=== PATIENT | female | born 1940 | race Caucasian/White ===

== ENCOUNTER 2016-12-15 10:12 | Emergency (ER) | payer MEDICARE ==
[2016-12-15] MEDS ORDERED: HYDROmorphone 0.5 MG/0.5 ML Syringe IVPUSH ONE (10:22)
[2016-12-15] MEDS ORDERED: Sodium Chloride 0.9% 10 ML Syringe FLUSH PRN (10:22)
[2016-12-15] MEDS ORDERED: ceFAZolin 1,000 MG VIAL IVPUSH ONE (11:19)
[2016-12-15] MEDS ORDERED: Lidocaine 1% 50 ML MDV INJECT ONE (11:20)
[2016-12-15] MEDS ORDERED: ceFAZolin 1 GM in Premix Bag 1 BAG IV ONE (11:42)
--- NOTE | 2016-12-15 12:12 | EDM.PDOC ---
ED HPI GENERAL MEDICAL PROBLEM - General Chief Complaint: Upper Extremity Injury/Pain Stated Complaint: PINKY FINGER INJURY Time Seen by Provider: 12/15/16 10:19 Source of Information: Reports: Patient History Limitations: Reports: No Limitations - History of Present Illness INITIAL COMMENTS - FREE TEXT/NARRATIVE: The patient was up at the clinic to see Dr Hermosillo and she went to the bathroom. When she was coming out of the bathroom, she had her hand on the door frame and the door shut and crushed her left, 5th distal finger. She is right handed. She denies any other injuries. She is up to date with her tetanus. Onset: Sudden Duration: Minutes: Location: Reports: Upper Extremity, Left (5th digit) Quality: Reports: Sharp Severity: Severe Improves with: Reports: None Worsens with: Reports: Movement Context: Reports: Trauma (Finger got crushed in the door) Associated Symptoms: Reports: No Other Symptoms Left Upper 5-Little finger Pain Score (Numeric/FACES): 10 - Related Data Allergies Allergy/AdvReac Type Severity Reaction Status Date / Time morphine AdvReac Other Verified 12/15/16 10:42 Home Meds: Home Meds Cephalexin [Keflex] 500 mg PO Q6HR #28 cap 12/15/16 [Rx] Hydrocodone/Acetaminophen [Hydrocodon-Acetaminophen 5-325] 1 - 2 each PO Q6HR PRN #20 tablet 12/15/16 [Rx] Past Medical History Genitourinary History: Reports: Renal Calculus 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: Neurological History: Reports: Alzheimers Disease Hematologic History: Reports: Anemia - Past Surgical History Musculoskeletal Surgical History: Reports: Hip Replacement, Knee Replacement, Other (See Below) Other Musculoskeletal Surgeries/Procedures:: Toes amputated Social & Family History - Family History Family Medical History: Noncontributory - Tobacco Use Smoking Status *Q: Former Smoker Used Tobacco, but Quit: Yes Month Tobacco Last Used: Nov 1996 - Recreational Drug Use Recreational Drug Use: No Review of Systems - Review of Systems Review Of Systems: See Below Constitutional: Reports: No Symptoms Eyes: Reports: No Symptoms Ears: Reports: No Symptoms Nose: Reports: No Symptoms Mouth/Throat: Reports: No Symptoms Respiratory: Reports: No Symptoms Cardiovascular: Reports: No Symptoms GI/Abdominal: Reports: No Symptoms Genitourinary: Reports: No Symptoms Musculoskeletal: Reports: Other (Left 5th distal finger fracture) ED EXAM, GENERAL - Physical Exam Exam: See Below Exam Limited By: No Limitations General Appearance: Alert, No Apparent Distress Ears: Normal External Exam Nose: Normal Inspection Head: Atraumatic, Normocephalic Neck: Normal Inspection Respiratory/Chest: No Respiratory Distress Extremities: Other (Left, 5th, distal finger has a partial amputation to the dorsal aspect of the digit. There is a 2.5cm laceration to the base of the nail that goes around the finger. There is no laceration to the volar aspect and the patient has good capillary refill and sensation to the finger tip.) ED TRAUMA EXTREMITY PROCEDURES - Laceration/Wound Repair Left Finger Lac/Wound Length In cm: 2.5 Appearance: Subcutaneous, Irregular Distal NVT: Neuro & Vascular Intact Anesthetic Type: Digital Local Anesthesia - Lidocaine (Xylocaine): 1% Plain Skin Prep: Saline Exploration/Debridement/Repair: Wound Explored, In a Bloodless Field, Explored to Base Closed With: Sutures Suture Size: 4-0 # of Sutures: 5 Suture Type: Nylon, Interrupted, Simple Tetanus Status Addressed: Yes Complications: No Course - Vital Signs Last Recorded V/S: Last Vital Signs Temp 98.7 F 12/15/16 10:36 Pulse 81 12/15/16 10:36 Resp 18 12/15/16 10:36 BP Pulse Ox 85 L 12/15/16 11:36 - Orders/Labs/Meds Orders: Active Orders 24 hr Category Date Time Status Peripheral IV Care [RC] . DIRECTED Care 12/15/16 10:22 Active Fingers Fifth Digit Lt F4 [CR] Stat Exams 12/15/16 10:23 Taken Sodium Chloride 0.9% [Saline Flush] Med 12/15/16 10:22 Active 10 ml FLUSH ASDIRECTED PRN Peripheral IV Insertion Adult [OM.PC] Routine Oth 12/15/16 10:22 Ordered Medication Orders Sodium Chloride (Saline Flush) 10 ml FLUSH ASDIRECTED PRN PRN Reason: Keep Vein Open Last Admin: 12/15/16 10:36 Dose: 10 ml Meds: Medications Generic Name Dose Route Start Last Admin Trade Name Freq PRN Reason Stop Dose Admin Sodium Chloride 10 ml 12/15/16 10:22 12/15/16 10:36 Saline Flush FLUSH 10 ml ASDIRECTED PRN Administration Keep Vein Open Discontinued Medications Generic Name Dose Route Start Last Admin Trade Name Leigh PRN Reason Stop Dose Admin Hydromorphone HCl 0.5 mg 12/15/16 10:22 12/15/16 10:32 Dilaudid IVPUSH 12/15/16 10:23 0.5 mg ONETIME ONE Administration Cefazolin Sodium/Dextrose Confirm 12/15/16 11:43 12/15/16 11:45 Ancef Administered 12/15/16 11:44 Not Given Dose 50 mls @ as directed .ROUTE .STK-MED ONE Cefazolin Sodium/Dextrose 1 gm 50 mls @ 100 mls/hr 12/15/16 11:42 12/15/16 11 :47 / Premix IV 12/15/16 12:11 100 mls/hr ONETIME ONE Administration Lidocaine HCl 50 ml 12/15/16 11:20 12/15/16 11:49 Xylocaine 1% INJECT 12/15/16 11:21 50 ml ONETIME ONE Administration - Re-Assessments/Exams Free Text/Narrative Re-Assessment/Exam: 12/15/16 12:12 I ordered an IV saline lock, dilaudid 0.5mg IV, ancef 1 gram and an x-ray. The x-ray shows a distal phalynx fracture of the 5th finger. She has good sensation and capillary refill distally to the tip of the finger. I was able to suture the tip back on. I will get her on keflex and something for pain. I will have her follow up with Dr Smith. Departure - Departure Time of Disposition: 12:15 Disposition: Home, Self-Care 01 Condition: Good Clinical Impression: Crushing injury of finger of left hand Open fracture of finger of left hand Qualifiers: Encounter type: initial encounter Finger: little finger Phalanx: distal Fracture alignment: displaced Qualified Code(s): S62.637B - Displaced fracture of distal phalanx of left little finger, initial encounter for open fracture - Discharge Information Prescriptions: Cephalexin [Keflex] 500 mg PO Q6HR #28 cap Hydrocodone/Acetaminophen [Hydrocodon-Acetaminophen 5-325] 1 - 2 each PO Q6HR PRN #20 tablet PRN Reason: Pain Referrals: Summer Hermosillo [Primary Care Provider] - Zack Smith MD [Physician] - 1 Week Forms: ED Department Discharge Additional Instructions: Take the keflex every 6 hours for 1 week. Take the hydrocodone as needed for pain. Soak your finger in warm soapy water 2 times per day and apply antibiotic ointment after for 1 week. Follow up with Dr Smith on MondayDecember 20 at 9:30. Please come early to register. Please return if you have more problems. - My Orders Last 24 Hours: My Active Orders 12/15/16 10:22 Peripheral IV Care [RC] . DIRECTED Sodium Chloride 0.9% [Saline Flush] 10 ml FLUSH ASDIRECTED PRN Peripheral IV Insertion Adult [OM.PC] Routine 12/15/16 10:23 Fingers Fifth Digit Lt F4 [CR] Stat - Assessment/Plan Last 24 Hours: My Active Orders 12/15/16 10:22 Peripheral IV Care [RC] . DIRECTED Sodium Chloride 0.9% [Saline Flush] 10 ml FLUSH ASDIRECTED PRN Peripheral IV Insertion Adult [OM.PC] Routine 12/15/16 10:23 Fingers Fifth Digit Lt F4 [CR] Stat
--- NOTE | 2016-12-16 16:55 | CR ---
Left fifth finger: Four views of the left fifth finger were obtained. Soft tissue injury is identified within the distal fifth finger. Displaced fracture is identified within the distal aspect of the fifth finger. Small calcification is noted off the DIP joint which appears to be old. Joint space narrowing is noted within the DIP joint. No additional bony abnormality is seen. Impression: 1. Soft tissue injury and fracture within the distal aspect of the distal phalanx of the left fifth finger. 2. Other incidental findings. Diagnostic code #3
== END 2016-12-15 12:43 | disposition home or self-care (01) ==
LOC: JD.ED 10:12
DX: S67.197A Crushing injury of left little finger, initial encounter (principal); S62.637B Displaced fracture of distal phalanx of left little finger, initial encounter for open fracture; Z88.5 Allergy status to narcotic agent; Z87.891 Personal history of nicotine dependence; W23.1XXA Caught, crushed, jammed, or pinched between stationary objects, initial encounter
CPT/HCPCS: 12001; 73140; 96365; 96375; 99284; J0690; J1170; J7050; 64450

== ENCOUNTER 2019-07-01 12:36 | Inpatient (IN) | payer MEDICARE, MEDICAID ==
--- NOTE | 2019-07-01 12:51 | EDM.PDOC ---
ED HPI GENERAL MEDICAL PROBLEM - General Chief Complaint: Back Pain or Injury Stated Complaint: [facility] Time Seen by Provider: 07/01/19 12:46 Source of Information: Reports: Patient, EMS History Limitations: Reports: Altered Mental Status, Other - History of Present Illness INITIAL COMMENTS - FREE TEXT/NARRATIVE: Fall landing on her back. Onset: Today Duration: Hour(s):, Constant Location: Reports: Back Quality: Reports: Ache Severity: Moderate Improves with: Reports: None Worsens with: Reports: None Context: Reports: Activity Associated Symptoms: Reports: Confusion, Loss of Appetite, Weakness Treatments MOTHER'S HELPER: Reports: See EMS Report (Patient brought in by ambulance after a fall at home. She must of fallen and different room from where she lives with her daughter. Was found on her back, had a scrape on her right lower back and flank area. No obvious loss of consciousness, patient has underlying Alzheimer's dementia. She currently is not complaining of any specific headaches, neck pain, chest pain or breathing problems. Her pulse oximetry however was low at mid 80% on room air range, blood pressure was low. Patient seems easily confused but does know her name and birthdate. Currently denies any headache, vision problems, swallowing problems, no coughing or chest pain, denies abdominal pain. 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 ED EXAM,LOWER BACK PAIN/INJURY - Physical Exam Exam: See Below Exam Limited By: No Limitations General Appearance: Alert, WD/WN, No Apparent Distress Eye Exam: Bilateral Eye: PERRL Ears: Normal TMs Nose: Normal Inspection Throat/Mouth: Other (Dry mucous membranes) Head: Atraumatic, Normocephalic Neck: Normal Inspection Respiratory/Chest: No Respiratory Distress, Lungs Clear, Normal Breath Sounds. No: Rhonchi, Wheezing Cardiovascular: Normal Peripheral Pulses, Regular Rate, Rhythm, No Edema, No JVD GI/Abdominal: Normal Bowel Sounds, Soft, Non-Tender, No Mass Back Exam: Decreased Range of Motion, Paraspinal Tenderness, Vertebral Tenderness Extremities: Normal Inspection, Normal Range of Motion, No Pedal Edema, Slow Capillary Refill Neurological: Alert, No Motor/Sensory Deficits Psychiatric: Normal Affect, Normal Mood Skin Exam: Warm, Dry (Patient oriented to person and place, no signs of any head injury or trauma no santacruz signs noted, neck supple no neck tenderness on palpation, her tenderness is mostly in the lumbar spine and the right paraspinal area and there is a abrasion right lower back as well. No deep lacerations are noted. No bruising discoloration noted. Abdomen soft nontender pelvis is stable, hips knees and ankles are examined and are uninjured.) EKG INTERPRETATION EKG Date: 07/01/19 EKG Interpretation Comments: EKG shows sinus rhythm that I reviewed with a rate of 72, IN 162 QRS 83 QT corrected is 448, nonspecific T wave inversion in lead V2 and V3 no acute ischemic changes noted. Course - Vital Signs Last Recorded V/S: Last Vital Signs Temp 99.1 F 07/01/19 12:41 MDT Pulse 79 07/01/19 12:41 MDT Resp 20 07/01/19 12:41 MDT BP 113/98 H 07/01/19 12:41 MDT Pulse Ox 85 L 07/01/19 12:41 MDT - Orders/Labs/Meds Orders: Active Orders 24 hr Category Date Time Status Cardiac Monitoring [RC] . DIRECTED Care 07/01/19 13:52 Active EKG Documentation Completion [RC] STAT Care 07/01/19 13:52 Active Peripheral IV Care [RC] . DIRECTED Care 07/01/19 13:54 Active CTA Chest W WO Contrast [Ang Chest] [CT] Stat Exams 07/01/19 16:25 Ordered Sodium Chloride 0.9% [Saline Flush] Med 07/01/19 13:53 Active 10 ml FLUSH ASDIRECTED PRN Peripheral IV Insertion Adult [OM.PC] Stat Oth 07/01/19 13:52 Ordered Medication Orders Sodium Chloride (Saline Flush) 10 ml FLUSH ASDIRECTED PRN PRN Reason: Keep Vein Open Last Admin: 07/01/19 14:16 MDT Dose: 10 ml Labs: Laboratory Tests 07/01/19 07/01/19 07/01/19 Range/Units 14:17 MDT 14:17 MDT 14:17 MDT WBC 9.89 (3.98-10.04) K/mm3 RBC 5.53 H (3.98-5.22) M/mm3 Hgb 14.4 (11.2-15.7) gm/dl Hct 45.1 H (34.1-44.9) % MCV 81.6 (79.4-94.8) fl MCH 26.0 (25.6-32.2) pg MCHC 31.9 L (32.2-35.5) g/dl RDW Std Deviation 49.8 H (36.4-46.3) fL Plt Count 356 (182-369) K/mm3 MPV 9.8 (9.4-12.3) fl Neut % (Auto) 80.2 H (34.0-71.1) % Lymph % (Auto) 12.1 L (19.3-51.7) % Faulk % (Auto) 6.8 (4.7-12.5) % Eos % (Auto) 0.5 L (0.7-5.8) Baso % (Auto) 0.2 (0.1-1.2) % Neut # (Auto) 7.93 H (1.56-6.13) K/mm3 Lymph # (Auto) 1.20 (1.18-3.74) K/mm3 Faulk # (Auto) 0.67 H (0.24-0.36) K/mm3 Eos # (Auto) 0.05 (0.04-0.36) K/mm3 Baso # (Auto) 0.02 (0.01-0.08) K/mm3 Sodium 136 (136-145) mEq/L Potassium 4.0 (3.5-5.1) mEq/L Chloride 100 (98-107) mEq/L Carbon Dioxide 27 (21-32) mEq/L Anion Gap 13.0 (5-15) BUN 10 (7-18) mg/dL Creatinine 0.5 L (0.55-1.02) mg/dL Est Cr Clr Drug Dosing 81.37 mL/min Estimated GFR (MDRD) > 60 (>60) mL/min BUN/Creatinine Ratio 20.0 H (14-18) Glucose 104 (83-115) mg/dL Lactic Acid (0.4-2.0) mmol/L Calcium 8.4 L (8.5-10.1) mg/dL Total Bilirubin 0.7 (0.2-1.0) mg/dL AST 16 (15-37) U/L ALT 14 (14-59) U/L Alkaline Phosphatase 81 (46-116) U/L Troponin I < 0.017 (0.00-0.056) ng/mL C-Reactive Protein 3.6 H* (<1.0) mg/dL NT-Pro-B Natriuret Pep 602 H (0-450) pg/mL Total Protein 7.7 (6.4-8.2) g/dl Albumin 2.7 L (3.4-5.0) g/dl Globulin 5.0 gm/dL Albumin/Globulin Ratio 0.5 L (1-2) Urine Color (Yellow) Urine Appearance (Clear) Urine pH (5.0-8.0) Ur Specific [place] (1.005-1.030) Urine Protein (Negative) Urine Glucose (UA) (Negative) Urine Ketones (Negative) Urine Occult Blood (Negative) Urine Nitrite (Negative) Urine Bilirubin (Negative) Urine Urobilinogen (0.2-1.0) Ur Leukocyte Esterase (Negative) Urine RBC (0-5) /hpf Urine WBC (0-5) /hpf Ur Squamous Epith Cells (0-5) /hpf Urine Bacteria (FEW) /hpf Urine Mucus (FEW) /hpf 07/01/19 07/01/19 Range/Units 14:32 MDT 14:58 MDT WBC (3.98-10.04) K/mm3 RBC (3.98-5.22) M/mm3 Hgb (11.2-15.7) gm/dl Hct (34.1-44.9) % MCV (79.4-94.8) fl MCH (25.6-32.2) pg MCHC (32.2-35.5) g/dl RDW Std Deviation (36.4-46.3) fL Plt Count (182-369) K/mm3 MPV (9.4-12.3) fl Neut % (Auto) (34.0-71.1) % Lymph % (Auto) (19.3-51.7) % Faulk % (Auto) (4.7-12.5) % Eos % (Auto) (0.7-5.8) Baso % (Auto) (0.1-1.2) % Neut # (Auto) (1.56-6.13) K/mm3 Lymph # (Auto) (1.18-3.74) K/mm3 Faulk # (Auto) (0.24-0.36) K/mm3 Eos # (Auto) (0.04-0.36) K/mm3 Baso # (Auto) (0.01-0.08) K/mm3 Sodium (136-145) mEq/L Potassium (3.5-5.1) mEq/L Chloride (98-107) mEq/L Carbon Dioxide (21-32) mEq/L Anion Gap (5-15) BUN (7-18) mg/dL Creatinine (0.55-1.02) mg/dL Est Cr Clr Drug Dosing mL/min Estimated GFR (MDRD) (>60) mL/min BUN/Creatinine Ratio (14-18) Glucose (83-115) mg/dL Lactic Acid 1.9 (0.4-2.0) mmol/L Calcium (8.5-10.1) mg/dL Total Bilirubin (0.2-1.0) mg/dL AST (15-37) U/L ALT (14-59) U/L Alkaline Phosphatase (46-116) U/L Troponin I (0.00-0.056) ng/mL C-Reactive Protein (<1.0) mg/dL NT-Pro-B Natriuret Pep (0-450) pg/mL Total Protein (6.4-8.2) g/dl Albumin (3.4-5.0) g/dl Globulin gm/dL Albumin/Globulin Ratio (1-2) Urine Color Yellow (Yellow) Urine Appearance Clear (Clear) Urine pH 6.0 (5.0-8.0) Ur Specific [place] 1.025 (1.005-1.030) Urine Protein Negative (Negative) Urine Glucose (UA) Negative (Negative) Urine Ketones Negative (Negative) Urine Occult Blood Negative (Negative) Urine Nitrite Negative (Negative) Urine Bilirubin 1+ H (Negative) Urine Urobilinogen 1.0 (0.2-1.0) Ur Leukocyte Esterase Negative (Negative) Urine RBC 0-5 (0-5) /hpf Urine WBC 0-5 (0-5) /hpf Ur Squamous Epith Cells 5-10 H (0-5) /hpf Urine Bacteria Few (FEW) /hpf Urine Mucus Moderate H (FEW) /hpf Meds: Medications Generic Name Dose Route Start Last Admin Trade Name Freq PRN Reason Stop Dose Admin Sodium Chloride 10 ml 07/01/19 13:53 MDT 07/01/19 14:16 MDT Saline Flush FLUSH 10 ml ASDIRECTED PRN Administration Keep Vein Open Discontinued Medications Generic Name Dose Route Start Last Admin Trade Name Freq PRN Reason Stop Dose Admin Sodium Chloride 500 mls @ 500 mls/hr 07/01/19 13:53 MDT 07/01/19 14:16 MDT Normal Saline IV 07/01/19 14:52 MDT 500 mls/hr .BOLUS ONE Administration - Radiology Interpretation Free Text/Narrative:: Chest x-ray shows right elbow prosthetic heart size is normal mediastinum normal no acute findings on chest x-ray Lumbar spine x-rays show compression deformities at T11-T12 which appear more old there is also compression deformities at L2 and 3 to space narrowing, degenerative changes noted X-ray of the pelvis shows severe degenerative changes in the hip otherwise some osteopenia no acute fractures noted. - Re-Assessments/Exams Free Text/Narrative Re-Assessment/Exam: 07/01/19 15:44 Patient with a fall, reviewed prehospital report, reviewed history, patient hypotensive and hypoxic. Patient does appear to be dehydrated as well. Lactic acid 1.9 EKG is negative for any acute ischemia, no chest pain, no acute fractures on her lumbar spine x-ray, chest x-ray is negative for infiltrate white count is normal no fevers. Given IV fluid bolus, oxygen therapy. Consider hospitalization for overnight however will talk with the patient's family regarding disposition. 07/01/19 16:[address] Jung for hospital medicine and with her requirement for oxygen with no etiology send her for a CT chest PE study rule out PE or other etiology, her blood pressure stabilized after 500 cc fluid bolus. Do not feel that she has sepsis at present, her serum lactate was okay, urinalysis is negative, chest x-ray otherwise does not show infection. Seems very unlikely to be coronavirus infection. Spent 15 minutes talking to the daughter who is the power of caustic room attendant and she is a DO NOT RESUSCITATE. It sounds like she probably did trip over her walker today however with the hypoxia and blood pressure again we will keep her monitored overnight. Departure - Departure Time of Disposition: 16:30 Disposition: Admitted As Inpatient 68 Condition: Fair Clinical Impression: Hypoxia Hypotension Qualifiers: Hypotension type: hypotension due to hypovolemia Qualified Code(s): I95.89 - Other hypotension - Discharge Information Referrals: PCP,None [Primary Care Provider] - Forms: ED Department Discharge Sepsis Event Note - Evaluation Sepsis Screening Result: No Definite Risk - Focused Exam Vital Signs: Vital Signs Temp Pulse Resp BP Pulse Ox 07/01/19 12:41 MDT 99.1 F 79 20 113/98 H 85 L Date Exam was Performed: 07/01/19 Time Exam was Performed: 17:34 - My Orders Last 24 Hours: My Active Orders 07/01/19 13:52 Cardiac Monitoring [RC] . DIRECTED EKG Documentation Completion [RC] STAT Peripheral IV Insertion Adult [OM.PC] Stat 07/01/19 13:53 Sodium Chloride 0.9% [Saline Flush] 10 ml FLUSH ASDIRECTED PRN 07/01/19 13:54 Peripheral IV Care [RC] . DIRECTED 07/01/19 16:25 CTA Chest W WO Contrast [Ang Chest] [CT] Stat - Assessment/Plan Last 24 Hours: My Active Orders 07/01/19 13:52 Cardiac Monitoring [RC] . DIRECTED EKG Documentation Completion [RC] STAT Peripheral IV Insertion Adult [OM.PC] Stat 07/01/19 13:53 Sodium Chloride 0.9% [Saline Flush] 10 ml FLUSH ASDIRECTED PRN 07/01/19 13:54 Peripheral IV Care [RC] . DIRECTED 07/01/19 16:25 CTA Chest W WO Contrast [Ang Chest] [CT] Stat
--- NOTE | 2019-07-01 13:36 | CR ---
Pelvis: AP view of pelvis was obtained. Comparison: No previous pelvis exam is available. Left hip prosthesis is seen. Severe joint space narrowing is seen diffusely within the right hip. Right femoral head shows osteophytes. Osteopenia is noted. No acute fracture or other abnormality is appreciated. Impression: 1. Severe degenerative change within the right hip. 2. Osteopenia and other findings. 3. Nothing acute is seen. Diagnostic code #2 Study was dictated in MDT
--- NOTE | 2019-07-01 13:36 | CR ---
Lumbar spine: AP and lateral views lumbar spine were obtained. Comparison: No prior lumbar spine imaging. Vertebroplasty is noted within a compression deformity involving T12. Mild compression deformity of T11 is seen with osteophytes suggesting that this is old. Mild compression deformities are seen within L2 and L3 which are likely old. Diffuse disc space narrowing within the spine is seen. Scattered endplate osteophytes are noted. Minimal scoliosis is seen. Left hip prosthesis is noted. Sacroiliac joints are within normal as. Bony structures are osteopenic. Impression: 1. Compression deformities as noted above which are most likely old. 2. Degenerative change and mild scoliosis. 3. Nothing acute is definitely appreciated. Diagnostic code #2 Study was dictated in MDT
--- NOTE | 2019-07-01 13:36 | CR ---
Chest: AP view of the chest was obtained. Comparison: No prior chest imaging. Right elbow prosthesis is seen. Heart size is normal. Upper mediastinum is normal. Lungs show no acute parenchymal change. Impression: 1. Findings as described above. 2. Nothing acute is definitely appreciated. Diagnostic code #2 Study was dictated in MDT
[2019-07-01] MEDS ORDERED: Sodium Chloride 0.9% 500 ML IV ONE (13:53)
[2019-07-01] MEDS ORDERED: Sodium Chloride 0.9% 10 ML Syringe FLUSH PRN ×2 (13:53→16:37)
--- NOTE | 2019-07-01 14:24 | CT ---
Head CT Technique: Multiple axial sections through the brain were obtained. Intravenous contrast was not utilized. Comparison: No prior intracranial imaging is available. Findings: Ventricles along with basal cisterns and sulci the convexities are moderately prominent. Areas of diminished density are noted within the subcortical and periventricular white matter which is felt compatible with small vessel ischemic demyelination change. Slight mucosal thickening is seen within both mastoid sinuses. Visualized paranasal sinuses show nothing acute. No acute calvarial abnormality is appreciated. Impression: 1. Senescent change as described above. 2. Mastoid sinus findings most likely chronic. 3. Nothing acute is appreciated on noncontrast head CT exam. Diagnostic code #2 Study was dictated in MDT
[2019-07-01] MEDS ORDERED: Iopamidol 755 Mg/ML 100 ML Bottle IVPUSH ONE (16:37)
[2019-07-01] MEDS ORDERED: Sodium Chloride 0.9% 100 ML IV SCH (16:45)
--- NOTE | 2019-07-01 17:13 | CT ---
CT chest Technique: Multiple axial sections were obtained from above the lung apices inferiorly through the lung bases. Intravenous contrast was utilized. Study performed as a ureteral stone protocol. Findings: Pulmonary arteries are somewhat enlarged. No filling defects are seen to indicate pulmonary embolism. Coronary artery calcification is noted. Aorta shows atherosclerotic calcification. No aneurysm is seen. Lymph node is is noted within the right hilar region measuring 1.8 cm. No pericardial thickening is seen. Small hiatal hernia is noted. Diffuse emphysematous change noted with peripheral fibrosis. No acute pulmonary parenchymal density is seen. No focal nodule is seen. Compression deformity is seen within the lower thoracic spine which are likely old. Previous vertebroplasty is seen within one of the fractures. Degenerative change is noted throughout the spine. No acute osseous finding is seen. Impression: 1. No findings of pulmonary embolism. 2. Diffuse emphysematous change with peripheral fibrosis. 3. Lymph node within the right hilar region most likely on an inflammatory basis. 4. Nothing acute is otherwise seen. Diagnostic code #2 Study was dictated in MDT
[2019-07-01] MEDS: Acetaminophen 325 MG Tab PO PRN (20:24)
--- NOTE | 2019-07-01 20:32 | PCM.HP.2 ---
H&P History of Present Illness - General Date of Service: 07/01/19 Admit Problem/Dx: Admission Diagnosis/Problem Admission Diagnosis/Problem Fall History Limitations: Reports: Other (Alzheimer's dementia) - History of Present Illness Initial Comments - Free Text/Narative: 9-year-old patient with history of Alzheimer's dementia brought in by EMS after a fall at home. Patient was found on her back in the fall was not witnessed. Patient states that she fell over her own feet, but daughter states she likely fell tripped over her walker there is no obvious loss of consciousness. She denies any head trauma, shortness of breath, chest pain, or back pain. She is found to have a low pulse oximetry in the mid 80s on room air and low blood pressure. Chest CT was done because of her hypoxemia. Impression: 1. No findings of pulmonary embolism. 2. Diffuse emphysematous change with peripheral fibrosis. 3. Lymph nodes within the right hilar region most likely on an inflammatory basis. 4. Nothing acute is otherwise seen. Lumbar spine, pelvis, chest x-ray, and head CT were all done finding degenerative changes or changes consistent with age but nothing acute. Lower Back Pain Score (Numeric/FACES): 5 - Related Data Allergies/Adverse Reactions: Allergies Allergy/AdvReac Type Severity Reaction Status Date / Time morphine AdvReac Other Verified 07/01/19 12:46 Home Medications: Home Meds Aspirin 325 mg PO BID PRN 07/01/19 [History] Past Medical History Other Respiratory History: hx. of smoking Genitourinary History: Reports: Renal Calculus Other Genitourinary History: dribbles [employer] History: Reports: Musculoskeletal History: Reports: RA Neurological History: Reports: Alzheimers Disease Psychiatric History: Reports: Alzheimers Disease, Dementia Hematologic History: Reports: Anemia Other Dermatologic History: skin breakdown under breast, and groin- - Infectious Disease History Infectious Disease History: Reports: Chicken Pox - Past Surgical History Female Surgical History: Reports: Kidney stone extraction Neurological Surgical History: Reports: None Musculoskeletal Surgical History: Reports: Hip Replacement, Knee Replacement, Other (See Below) Other Musculoskeletal Surgeries/Procedures:: Toes amputated Dermatological Surgical History: Reports: None Social & Family History - Family History Family Medical History: Noncontributory - Tobacco Use Smoking Status *Q: Former Smoker Years of Tobacco use: 20 Packs/Tins Daily: 1 Used Tobacco, but Quit: Yes Month/Year Tobacco Last Used: 2014 Second Hand Smoke Exposure: No - Caffeine Use Caffeine Use: Reports: Coffee - Recreational Drug Use Recreational Drug Use: No H&P Review of Systems - Review of Systems: Review Of Systems: Comprehensive ROS is negative, except as noted in HPI. Exam - Exam Exam: See Below (Oriented to person and place) - Vital Signs Vital Signs: Last Vital Signs Temp 98.2 F 07/01/19 20:20 Pulse 67 07/01/19 20:20 Resp 18 07/01/19 20:20 BP 106/54 L 07/01/19 20:20 Pulse Ox 100 07/01/19 20:20 Weight: 143 lb 12.8 oz - Exam Quality Assessment: Supplemental Oxygen General: Alert, Oriented HEENT: Conjunctiva Clear, Hearing Intact, Mucosa Moist & [place] Neck: Supple, Trachea Midline, 2 Lungs: Clear to Auscultation, Normal Respiratory Effort Cardiovascular: Regular Rate, Regular Rhythm GI/Abdominal Exam: Normal Bowel Sounds, Soft, Non-Tender, No Distention Back Exam: Normal Inspection, Full Range of Motion, NT Extremities: Non-Tender, Normal Capillary Refill, Pedal Edema. No: Normal Inspection (All toes bilaterally are amputated) Peripheral Pulses: 1+: Popliteal (R), Posterior Tibial (L), Posterior Tibial (R) , Dorsalis Pedis (L) Neuro Extensive - Mental Status: Alert, Oriented x3, Normal Mood/Affect, Normal Cognition Psychiatric: Alert, Normal Affect, Normal Mood - Patient Data Lab Results Last 24 hrs: Laboratory Results - last 24 hr 07/01/19 07/01/19 07/01/19 Range/Units 14:17 14:17 14:17 WBC 9.89 (3.98-10.04) K/mm3 RBC 5.53 H (3.98-5.22) M/mm3 Hgb 14.4 (11.2-15.7) gm/dl Hct 45.1 H (34.1-44.9) % MCV 81.6 (79.4-94.8) fl MCH 26.0 (25.6-32.2) pg MCHC 31.9 L (32.2-35.5) g/dl RDW Std Deviation 49.8 H (36.4-46.3) fL Plt Count 356 (182-369) K/mm3 MPV 9.8 (9.4-12.3) fl Neut % (Auto) 80.2 H (34.0-71.1) % Lymph % (Auto) 12.1 L (19.3-51.7) % [place] % (Auto) 6.8 (4.7-12.5) % Eos % (Auto) 0.5 L (0.7-5.8) Baso % (Auto) 0.2 (0.1-1.2) % Neut # (Auto) 7.93 H (1.56-6.13) K/mm3 Lymph # (Auto) 1.20 (1.18-3.74) K/mm3 [place] # (Auto) 0.67 H (0.24-0.36) K/mm3 Eos # (Auto) 0.05 (0.04-0.36) K/mm3 Baso # (Auto) 0.02 (0.01-0.08) K/mm3 Sodium 136 (136-145) mEq/L Potassium 4.0 (3.5-5.1) mEq/L Chloride 100 (98-107) mEq/L Carbon Dioxide 27 (21-32) mEq/L Anion Gap 13.0 (5-15) BUN 10 (7-18) mg/dL Creatinine 0.5 L (0.55-1.02) mg/dL Est Cr Clr Drug Dosing 81.37 mL/min Estimated GFR (MDRD) > 60 (>60) mL/min BUN/Creatinine Ratio 20.0 H (14-18) Glucose 104 (83-115) mg/dL Lactic Acid (0.4-2.0) mmol/L Calcium 8.4 L (8.5-10.1) mg/dL Total Bilirubin 0.7 (0.2-1.0) mg/dL AST 16 (15-37) U/L ALT 14 (14-59) U/L Alkaline Phosphatase 81 (46-116) U/L Troponin I < 0.017 (0.00-0.056) ng/mL C-Reactive Protein 3.6 H* (<1.0) mg/dL NT-Pro-B Natriuret Pep 602 H (0-450) pg/mL Total Protein 7.7 (6.4-8.2) g/dl Albumin 2.7 L (3.4-5.0) g/dl Globulin 5.0 gm/dL Albumin/Globulin Ratio 0.5 L (1-2) Urine Color (Yellow) Urine Appearance (Clear) Urine pH (5.0-8.0) Ur Specific [place] (1.005-1.030) Urine Protein (Negative) Urine Glucose (UA) (Negative) Urine Ketones (Negative) Urine Occult Blood (Negative) Urine Nitrite (Negative) Urine Bilirubin (Negative) Urine Urobilinogen (0.2-1.0) Ur Leukocyte Esterase (Negative) Urine RBC (0-5) /hpf Urine WBC (0-5) /hpf Ur Squamous Epith Cells (0-5) /hpf Urine Bacteria (FEW) /hpf Urine Mucus (FEW) /hpf 07/01/19 07/01/19 Range/Units 14:32 14:58 WBC (3.98-10.04) K/mm3 RBC (3.98-5.22) M/mm3 Hgb (11.2-15.7) gm/dl Hct (34.1-44.9) % MCV (79.4-94.8) fl MCH (25.6-32.2) pg MCHC (32.2-35.5) g/dl RDW Std Deviation (36.4-46.3) fL Plt Count (182-369) K/mm3 MPV (9.4-12.3) fl Neut % (Auto) (34.0-71.1) % Lymph % (Auto) (19.3-51.7) % Ross % (Auto) (4.7-12.5) % Eos % (Auto) (0.7-5.8) Baso % (Auto) (0.1-1.2) % Neut # (Auto) (1.56-6.13) K/mm3 Lymph # (Auto) (1.18-3.74) K/mm3 [place] # (Auto) (0.24-0.36) K/mm3 Eos # (Auto) (0.04-0.36) K/mm3 Baso # (Auto) (0.01-0.08) K/mm3 Sodium (136-145) mEq/L Potassium (3.5-5.1) mEq/L Chloride (98-107) mEq/L Carbon Dioxide (21-32) mEq/L Anion Gap (5-15) BUN (7-18) mg/dL Creatinine (0.55-1.02) mg/dL Est Cr Clr Drug Dosing mL/min Estimated GFR (MDRD) (>60) mL/min BUN/Creatinine Ratio (14-18) Glucose (83-115) mg/dL Lactic Acid 1.9 (0.4-2.0) mmol/L Calcium (8.5-10.1) mg/dL Total Bilirubin (0.2-1.0) mg/dL AST (15-37) U/L ALT (14-59) U/L Alkaline Phosphatase (46-116) U/L Troponin I (0.00-0.056) ng/mL C-Reactive Protein (<1.0) mg/dL NT-Pro-B Natriuret Pep (0-450) pg/mL Total Protein (6.4-8.2) g/dl Albumin (3.4-5.0) g/dl Globulin gm/dL Albumin/Globulin Ratio (1-2) Urine Color Yellow (Yellow) Urine Appearance Clear (Clear) Urine pH 6.0 (5.0-8.0) Ur Specific [place] 1.025 (1.005-1.030) Urine Protein Negative (Negative) Urine Glucose (UA) Negative (Negative) Urine Ketones Negative (Negative) Urine Occult Blood Negative (Negative) Urine Nitrite Negative (Negative) Urine Bilirubin 1+ H (Negative) Urine Urobilinogen 1.0 (0.2-1.0) Ur Leukocyte Esterase Negative (Negative) Urine RBC 0-5 (0-5) /hpf Urine WBC 0-5 (0-5) /hpf Ur Squamous Epith Cells 5-10 H (0-5) /hpf Urine Bacteria Few (FEW) /hpf Urine Mucus Moderate H (FEW) /hpf Result Diagrams: 07/01/19 14:17 07/01/19 14:17 EKG INTERPRETATION EKG Date: 07/01/19 Rhythm: NSR ST-T: Other (Nonspecific in anterior leads. T wave inversions and anterior leads. Right axis deviation) Sepsis Event Note - Evaluation Sepsis Screening Result: No Definite Risk - Focused Exam Vital Signs: Vital Signs Temp Temp Pulse Pulse Resp BP BP 04/13/20 20:20 98.2 F 67 18 106/54 L 07/01/19 17:49 98.6 F 69 18 126/74 07/01/19 16:59 63 16 108/57 L 07/01/19 12:41 99.1 F 79 20 113/98 H Pulse Ox 07/01/19 20:20 100 07/01/19 17:49 92 L 07/01/19 16:59 98 07/01/19 12:41 85 L Date Exam was Performed: 07/01/19 Time Exam was Performed: 20:51 Problem List Initiated/Reviewed/Updated: Yes Orders Last 24hrs: Active Orders 24 hr Category Date Time Status Admission Status [Patient Status] [ADT] Routine ADT 07/01/19 16:44 Active Cardiac Monitoring [RC] . DIRECTED Care 07/01/19 13:52 Active Nursing Bedside Swallow Screen [RC] ASDIRECTED Care 07/01/19 19:43 Active Oxygen Therapy [RC] PRN Care 07/01/19 19:43 Active Up With Assistance [RC] ASDIRECTED Care 07/01/19 19:43 Active VTE/DVT Education [RC] PER UNIT ROUTINE Care 07/01/19 19:43 Active Vital Signs [RC] Q4H Care 07/01/19 19:43 Active OT Evaluation and Treatment [CONS] Routine Cons 07/01/19 19:43 Active PT Evaluation and Treatment [CONS] Routine Cons 07/01/19 19:43 Active Mechanical Soft Diet [DIET] Diet 07/02/19 Breakfast Active C-REACTIVE PROTEIN [CHEM] AM Lab 07/02/19 05:11 Ordered CBC WITH AUTO DIFF [HEME] AM Lab 07/02/19 05:11 Ordered COMPREHENSIVE METABOLIC PN,CMP [CHEM] AM Lab 07/02/19 05:11 Ordered MAGNESIUM [CHEM] AM Lab 07/02/19 05:11 Ordered Acetaminophen [Tylenol] Med 07/01/19 19:43 Active 650 mg PO Q4H PRN Sodium Chloride 0.9% [Normal Saline] 100 ml Med 07/01/19 16:45 Active IV ASDIRECTED Sodium Chloride 0.9% [Saline Flush] Med 07/01/19 13:53 Active 10 ml FLUSH ASDIRECTED PRN Sodium Chloride 0.9% [Saline Flush] Med 07/01/19 16:37 Active 10 ml FLUSH ONETIME PRN Peripheral IV Insertion Adult [OM.PC] Stat Oth 07/01/19 13:52 Ordered Resuscitation Status Routine Resus Stat 07/01/19 19:16 Ordered Medication Orders Acetaminophen (Tylenol) 650 mg PO Q4H PRN PRN Reason: Pain (Mild 1-3)/fever Last Admin: 07/01/19 20:24 Dose: 650 mg Sodium Chloride (Normal Saline) 100 mls @ 60 mls/hr IV ASDIRECTED CORY Last Admin: 07/01/19 16:49 Dose: 60 mls/hr Sodium Chloride (Saline Flush) 10 ml FLUSH ASDIRECTED PRN PRN Reason: Keep Vein Open Last Admin: 07/01/19 14:16 Dose: 10 ml Sodium Chloride (Saline Flush) 10 ml FLUSH ONETIME PRN PRN Reason: Keep Vein Open Last Admin: 07/01/19 16:49 Dose: 10 ml Assessment/Plan Comment:: Assessment 79-year-old with fall at home without loss of consciousness * No radiographic evidence of fracture Emphysema, peripheral fibrosis, with hypoxia * CT evidence of emphysema with peripheral fibrosis * Requiring 2 L nasal cannula to keep oxygen saturations above 90% * No signs of acute exacerbation of COPD or pneumonia. Alzheimer's disease * No medications Plan * Admit to medical floor * FiO2 to keep SPO2 greater than 90% * Qualify for home oxygen * DuoNeb 4 times daily * Albuterol neb every 4 hours as needed * PT and OT secondary to ataxia and fall. Patient has all 10 toes amputated. * VTE prophylaxis with SCDs * CODE STATUS: Full code * Length of stay 2 days. - Mortality Measure Prognosis:: Good
[2019-07-01] MEDS ORDERED: Albuterol 0.083% 2.5 MG/3 ML Neb Soln NEB PRN (20:51)
[2019-07-01] MEDS: Albuterol/Ipratropium 3.0-0.5 MG/3 ML Neb Soln NEB SCH (22:21)
[2019-07-02] MEDS: Acetaminophen 325 MG Tab PO PRN ×4 (00:48→15:59)
[2019-07-02] MEDS: Albuterol/Ipratropium 3.0-0.5 MG/3 ML Neb Soln NEB SCH ×4 (03:28→20:47)
--- NOTE | 2019-07-02 12:27 | PCM.PN ---
- General Info Date of Service: 07/02/19 Admission Dx/Problem (Free Text): Admission Diagnosis/Problem Admission Diagnosis/Problem Fall Subjective Update: Patient is resting comfortably. She has no complaints. She still continues to require supplemental FiO2. - Review of Systems General: Reports: No Symptoms HEENT: Reports: No Symptoms Pulmonary: Reports: No Symptoms Cardiovascular: Reports: No Symptoms Gastrointestinal: Reports: No Symptoms Musculoskeletal: Reports: No Symptoms - Patient Data Vitals - Most Recent: Last Vital Signs Temp 97.5 F 07/02/19 03:52 Pulse 66 07/02/19 11:19 Resp 20 07/02/19 11:19 BP 107/34 L 07/02/19 11:19 Pulse Ox 91 L 07/02/19 11:19 Weight - Most Recent: 144 lb 8 oz I&O - Last 24 Hours: Intake & Output 07/01/19 07/02/19 07/02/19 22:59 06:59 14:59 Intake Total 300 360 Output Total 900 Balance -600 360 Lab Results Last 24 Hours: Laboratory Results - last 24 hr 07/01/19 07/01/19 07/01/19 Range/Units 14:17 14:17 14:17 WBC 9.89 (3.98-10.04) K/mm3 RBC 5.53 H (3.98-5.22) M/mm3 Hgb 14.4 (11.2-15.7) gm/dl Hct 45.1 H (34.1-44.9) % MCV 81.6 (79.4-94.8) fl MCH 26.0 (25.6-32.2) pg MCHC 31.9 L (32.2-35.5) g/dl RDW Std Deviation 49.8 H (36.4-46.3) fL Plt Count 356 (182-369) K/mm3 MPV 9.8 (9.4-12.3) fl Neut % (Auto) 80.2 H (34.0-71.1) % Lymph % (Auto) 12.1 L (19.3-51.7) % [place] % (Auto) 6.8 (4.7-12.5) % Eos % (Auto) 0.5 L (0.7-5.8) Baso % (Auto) 0.2 (0.1-1.2) % Neut # (Auto) 7.93 H (1.56-6.13) K/mm3 Lymph # (Auto) 1.20 (1.18-3.74) K/mm3 [place] # (Auto) 0.67 H (0.24-0.36) K/mm3 Eos # (Auto) 0.05 (0.04-0.36) K/mm3 Baso # (Auto) 0.02 (0.01-0.08) K/mm3 Sodium 136 (136-145) mEq/L Potassium 4.0 (3.5-5.1) mEq/L Chloride 100 (98-107) mEq/L Carbon Dioxide 27 (21-32) mEq/L Anion Gap 13.0 (5-15) BUN 10 (7-18) mg/dL Creatinine 0.5 L (0.55-1.02) mg/dL Est Cr Clr Drug Dosing 81.37 mL/min Estimated GFR (MDRD) > 60 (>60) mL/min BUN/Creatinine Ratio 20.0 H (14-18) Glucose 104 (83-115) mg/dL Lactic Acid (0.4-2.0) mmol/L Calcium 8.4 L (8.5-10.1) mg/dL Magnesium (1.8-2.4) mg/dl Total Bilirubin 0.7 (0.2-1.0) mg/dL AST 16 (15-37) U/L ALT 14 (14-59) U/L Alkaline Phosphatase 81 (46-116) U/L Troponin I < 0.017 (0.00-0.056) ng/mL C-Reactive Protein 3.6 H* (<1.0) mg/dL NT-Pro-B Natriuret Pep 602 H (0-450) pg/mL Total Protein 7.7 (6.4-8.2) g/dl Albumin 2.7 L (3.4-5.0) g/dl Globulin 5.0 gm/dL Albumin/Globulin Ratio 0.5 L (1-2) Urine Color (Yellow) Urine Appearance (Clear) Urine pH (5.0-8.0) Ur Specific [place] (1.005-1.030) Urine Protein (Negative) Urine Glucose (UA) (Negative) Urine Ketones (Negative) Urine Occult Blood (Negative) Urine Nitrite (Negative) Urine Bilirubin (Negative) Urine Urobilinogen (0.2-1.0) Ur Leukocyte Esterase (Negative) Urine RBC (0-5) /hpf Urine WBC (0-5) /hpf Ur Squamous Epith Cells (0-5) /hpf Urine Bacteria (FEW) /hpf Urine Mucus (FEW) /hpf 07/01/19 07/01/19 07/02/19 Range/Units 14:32 14:58 05:25 WBC 5.02 (3.98-10.04) K/mm3 RBC 5.21 (3.98-5.22) M/mm3 Hgb 13.5 (11.2-15.7) gm/dl Hct 42.8 (34.1-44.9) % MCV 82.1 (79.4-94.8) fl MCH 25.9 (25.6-32.2) pg MCHC 31.5 L (32.2-35.5) g/dl RDW Std Deviation 49.5 H (36.4-46.3) fL Plt Count 274 D (182-369) K/mm3 MPV 10.3 (9.4-12.3) fl Neut % (Auto) 69.7 (34.0-71.1) % Lymph % (Auto) 19.7 (19.3-51.7) % [place] % (Auto) 7.4 (4.7-12.5) % Eos % (Auto) 2.6 (0.7-5.8) Baso % (Auto) 0.4 (0.1-1.2) % Neut # (Auto) 3.50 (1.56-6.13) K/mm3 Lymph # (Auto) 0.99 L (1.18-3.74) K/mm3 [place] # (Auto) 0.37 H (0.24-0.36) K/mm3 Eos # (Auto) 0.13 (0.04-0.36) K/mm3 Baso # (Auto) 0.02 (0.01-0.08) K/mm3 Sodium (136-145) mEq/L Potassium (3.5-5.1) mEq/L Chloride (98-107) mEq/L Carbon Dioxide (21-32) mEq/L Anion Gap (5-15) BUN (7-18) mg/dL Creatinine (0.55-1.02) mg/dL Est Cr Clr Drug Dosing mL/min Estimated GFR (MDRD) (>60) mL/min BUN/Creatinine Ratio (14-18) Glucose (83-115) mg/dL Lactic Acid 1.9 (0.4-2.0) mmol/L Calcium (8.5-10.1) mg/dL Magnesium (1.8-2.4) mg/dl Total Bilirubin (0.2-1.0) mg/dL AST (15-37) U/L ALT (14-59) U/L Alkaline Phosphatase (46-116) U/L Troponin I (0.00-0.056) ng/mL C-Reactive Protein (<1.0) mg/dL NT-Pro-B Natriuret Pep (0-450) pg/mL Total Protein (6.4-8.2) g/dl Albumin (3.4-5.0) g/dl Globulin gm/dL Albumin/Globulin Ratio (1-2) Urine Color Yellow (Yellow) Urine Appearance Clear (Clear) Urine pH 6.0 (5.0-8.0) Ur Specific [place] 1.025 (1.005-1.030) Urine Protein Negative (Negative) Urine Glucose (UA) Negative (Negative) Urine Ketones Negative (Negative) Urine Occult Blood Negative (Negative) Urine Nitrite Negative (Negative) Urine Bilirubin 1+ H (Negative) Urine Urobilinogen 1.0 (0.2-1.0) Ur Leukocyte Esterase Negative (Negative) Urine RBC 0-5 (0-5) /hpf Urine WBC 0-5 (0-5) /hpf Ur Squamous Epith Cells 5-10 H (0-5) /hpf Urine Bacteria Few (FEW) /hpf Urine Mucus Moderate H (FEW) /hpf 07/02/19 Range/Units 05:25 WBC (3.98-10.04) K/mm3 RBC (3.98-5.22) M/mm3 Hgb (11.2-15.7) gm/dl Hct (34.1-44.9) % MCV (79.4-94.8) fl MCH (25.6-32.2) pg MCHC (32.2-35.5) g/dl RDW Std Deviation (36.4-46.3) fL Plt Count (182-369) K/mm3 MPV (9.4-12.3) fl Neut % (Auto) (34.0-71.1) % Lymph % (Auto) (19.3-51.7) % [place] % (Auto) (4.7-12.5) % Eos % (Auto) (0.7-5.8) Baso % (Auto) (0.1-1.2) % Neut # (Auto) (1.56-6.13) K/mm3 Lymph # (Auto) (1.18-3.74) K/mm3 [place] # (Auto) (0.24-0.36) K/mm3 Eos # (Auto) (0.04-0.36) K/mm3 Baso # (Auto) (0.01-0.08) K/mm3 Sodium 140 (136-145) mEq/L Potassium 3.5 (3.5-5.1) mEq/L Chloride 103 (98-107) mEq/L Carbon Dioxide 28 (21-32) mEq/L Anion Gap 12.5 (5-15) BUN 8 (7-18) mg/dL Creatinine 0.5 L (0.55-1.02) mg/dL Est Cr Clr Drug Dosing 81.37 mL/min Estimated GFR (MDRD) > 60 (>60) mL/min BUN/Creatinine Ratio 16.0 (14-18) Glucose 89 (83-115) mg/dL Lactic Acid (0.4-2.0) mmol/L Calcium 8.2 L (8.5-10.1) mg/dL Magnesium 2.0 (1.8-2.4) mg/dl Total Bilirubin 0.8 (0.2-1.0) mg/dL AST 13 L (15-37) U/L ALT 12 L (14-59) U/L Alkaline Phosphatase 69 (46-116) U/L Troponin I (0.00-0.056) ng/mL C-Reactive Protein 3.9 H* (<1.0) mg/dL NT-Pro-B Natriuret Pep (0-450) pg/mL Total Protein 7.1 (6.4-8.2) g/dl Albumin 2.4 L (3.4-5.0) g/dl Globulin 4.7 gm/dL Albumin/Globulin Ratio 0.5 L (1-2) Urine Color (Yellow) Urine Appearance (Clear) Urine pH (5.0-8.0) Ur Specific [place] (1.005-1.030) Urine Protein (Negative) Urine Glucose (UA) (Negative) Urine Ketones (Negative) Urine Occult Blood (Negative) Urine Nitrite (Negative) Urine Bilirubin (Negative) Urine Urobilinogen (0.2-1.0) Ur Leukocyte Esterase (Negative) Urine RBC (0-5) /hpf Urine WBC (0-5) /hpf Ur Squamous Epith Cells (0-5) /hpf Urine Bacteria (FEW) /hpf Urine Mucus (FEW) /hpf Med Orders - Current: Current Medications Acetaminophen (Tylenol) 650 mg PO Q4H PRN PRN Reason: Pain (Mild 1-3)/fever Last Admin: 07/02/19 12:14 Dose: 650 mg Albuterol (Proventil Neb Soln) 2.5 mg NEB Q6H PRN PRN Reason: Shortness of Breath Albuterol/Ipratropium (Duoneb 3.0-0.5 Mg/3 Ml) 3 ml NEB Q6HRRT [facility] Last Admin: 07/02/19 09:13 Dose: 3 ml Sodium Chloride (Saline Flush) 10 ml FLUSH ASDIRECTED PRN PRN Reason: Keep Vein Open Last Admin: 07/01/19 14:16 Dose: 10 ml Discontinued Medications Sodium Chloride (Normal Saline) 500 mls @ 500 mls/hr IV .BOLUS ONE Stop: 07/01/19 14:52 Last Admin: 07/01/19 14:16 Dose: 500 mls/hr Sodium Chloride (Normal Saline) 100 mls @ 60 mls/hr IV ASDIRECTED [facility] Last Admin: 07/01/19 16:49 Dose: 60 mls/hr Iopamidol (Isovue-370 (76%)) 100 ml IVPUSH ONETIME ONE Stop: 07/01/19 16:38 Last Admin: 07/01/19 16:48 Dose: 100 ml Sodium Chloride (Saline Flush) 10 ml FLUSH ONETIME PRN PRN Reason: Keep Vein Open Last Admin: 07/01/19 16:49 Dose: 10 ml - Exam Quality Assessment: Supplemental Oxygen General: Alert HEENT: Pupils Equal, Mucous Membr. Moist/[place] Neck: Supple Lungs: Clear to Auscultation, Normal Respiratory Effort Cardiovascular: Regular Rate, Regular Rhythm GI/Abdominal Exam: Normal Bowel Sounds, Soft, Non-Tender Extremities: Normal Inspection, Normal Range of Motion, Non-Tender, No Pedal Edema, Normal Capillary Refill Skin: Warm, Dry, Intact Sepsis Event Note - Evaluation Sepsis Screening Result: No Definite Risk - Focused Exam Vital Signs: Vital Signs Temp Pulse Resp BP Pulse Ox Pulse Ox 07/02/19 11:19 66 20 107/34 L 91 L 07/02/19 09:13 97 07/02/19 07:43 55 L 16 105/50 L 97 07/02/19 03:52 97.5 F 49 L 18 117/71 88 L 07/02/19 03:37 97 07/02/19 00:45 98.1 F 63 19 107/76 94 L Date Exam was Performed: 07/02/19 Time Exam was Performed: 12:23 - Problem List Review Problem List Initiated/Reviewed/Updated: Yes - My Orders Last 24 Hours: My Active Orders 07/01/19 19:16 Resuscitation Status Routine 07/01/19 19:43 Oxygen Therapy [RC] PRN Up With Assistance [RC] BID VTE/DVT Education [RC] BID Vital Signs [RC] Q4HR OT Evaluation and Treatment [CONS] Routine PT Evaluation and Treatment [CONS] Routine Acetaminophen [Tylenol] 650 mg PO Q4H PRN 07/01/19 20:51 Albuterol [Proventil Neb Soln] 2.5 mg NEB Q6H PRN 07/01/19 20:52 RT Aerosol Therapy [RC] ASDIRECTED 07/01/19 20:54 Antiembolic Devices [RC] BID SCD [Sequential Compression Device] [OM.PC] Routine 07/01/19 21:00 Albuterol/Ipratropium [DuoNeb 3.0-0.5 MG/3 ML] 3 ml NEB Q6HRRT 07/02/19 Breakfast Mechanical Soft Diet [DIET] - Plan Plan:: Assessment 79-year-old with fall at home without loss of consciousness * No radiographic evidence of fracture Emphysema and peripheral fibrosis on CT, with hypoxia * CT evidence of emphysema with peripheral fibrosis * Requiring 2 L nasal cannula to keep oxygen saturations above 90% * No signs of acute exacerbation of COPD or pneumonia. Dementia * No medications Plan * Admit to medical floor * FiO2 to keep SPO2 greater than 90% * Qualify for home oxygen * DuoNeb 4 times daily * Albuterol neb every 4 hours as needed * RT to qualify for home O2 in the next day or 2 * PT and OT secondary to ataxia and fall. Patient has all 10 toes amputated. * VTE prophylaxis with SCDs * CODE STATUS: Full code * Length of stay 2 days.
[2019-07-02] MEDS: Acetaminophen/HYDROcodone 325-5 MG Tab PO PRN ×2 (17:22→21:35)
[2019-07-03] MEDS: Acetaminophen/HYDROcodone 325-5 MG Tab PO PRN ×3 (01:22→17:12)
[2019-07-03] MEDS: Albuterol/Ipratropium 3.0-0.5 MG/3 ML Neb Soln NEB SCH ×4 (02:35→20:31)
[2019-07-03] MEDS ORDERED: Magnesium Hydroxide 400 MG/5 ML Susp 30 ML Cup PO ONE (08:00)
--- NOTE | 2019-07-03 10:31 | PCM.PN ---
- General Info Date of Service: 07/03/19 Admission Dx/Problem (Free Text): Admission Diagnosis/Problem Admission Diagnosis/Problem Fall Functional Status: Reports: Pain Controlled, Tolerating Diet, Ambulating, New Symptoms - Review of Systems General: Reports: No Symptoms, Weakness. Denies: Fever, Fatigue, Malaise, Chills HEENT: Reports: No Symptoms. Denies: Sore Throat Pulmonary: Reports: No Symptoms. Denies: Shortness of Breath, Cough, Sputum, Wheezing Cardiovascular: Reports: No Symptoms. Denies: Chest Pain, Dyspnea on Exertion, Edema Gastrointestinal: Reports: No Symptoms. Denies: Abdominal Pain, Constipation, Diarrhea, Nausea, Vomiting Genitourinary: Reports: No Symptoms. Denies: Pain Musculoskeletal: Reports: Back Pain Skin: Reports: No Symptoms. Denies: Cyanosis Neurological: Reports: Confusion, Difficulty Walking, Weakness, Gait Disturbance. Denies: Headache, Numbness, Syncope, Tingling, Trouble Speaking Psychiatric: Reports: No Symptoms - Patient Data Vitals - Most Recent: Last Vital Signs Temp 97.2 F 07/02/19 19:46 Pulse 61 07/02/19 19:46 Resp 19 07/02/19 19:46 BP 115/78 07/02/19 19:46 Pulse Ox 92 L 07/03/19 08:15 Weight - Most Recent: 146 lb 9.6 oz I&O - Last 24 Hours: Intake & Output 07/02/19 07/03/19 07/03/19 22:59 06:59 14:59 Intake Total 420 400 120 Output Total 800 Balance 420 -400 120 Med Orders - Current: Current Medications Acetaminophen (Tylenol) 650 mg PO Q4H PRN PRN Reason: Pain (Mild 1-3)/fever Last Admin: 07/02/19 15:59 Dose: 650 mg Hydrocodone Bitart/Acetaminophen (Cameron 325-5 Mg) 1.5 tab PO Q4H PRN PRN Reason: Pain Last Admin: 07/03/19 07:37 Dose: 1.5 tab Albuterol (Proventil Neb Soln) 2.5 mg NEB Q6H PRN PRN Reason: Shortness of Breath Albuterol/Ipratropium (Duoneb 3.0-0.5 Mg/3 Ml) 3 ml NEB Q6HRRT CORY Last Admin: 07/03/19 08:15 Dose: 3 ml Sodium Chloride (Saline Flush) 10 ml FLUSH ASDIRECTED PRN PRN Reason: Keep Vein Open Last Admin: 07/01/19 14:16 Dose: 10 ml Discontinued Medications Hydrocodone Bitart/Acetaminophen (Cameron 325-5 Mg) 1 tab PO Q4H PRN PRN Reason: Pain Last Admin: 07/02/19 21:35 Dose: 1 tab Sodium Chloride (Normal Saline) 500 mls @ 500 mls/hr IV .BOLUS ONE Stop: 07/01/19 14:52 Last Admin: 07/01/19 14:16 Dose: 500 mls/hr Sodium Chloride (Normal Saline) 100 mls @ 60 mls/hr IV ASDIRECTED CORY Last Admin: 07/01/19 16:49 Dose: 60 mls/hr Iopamidol (Isovue-370 (76%)) 100 ml IVPUSH ONETIME ONE Stop: 07/01/19 16:38 Last Admin: 07/01/19 16:48 Dose: 100 ml Magnesium Hydroxide (Milk Of Magnesia) 30 ml PO ONETIME ONE Stop: 07/03/19 08:01 Last Admin: 07/03/19 09:28 Dose: 30 ml Sodium Chloride (Saline Flush) 10 ml FLUSH ONETIME PRN PRN Reason: Keep Vein Open Last Admin: 07/01/19 16:49 Dose: 10 ml - Exam Quality Assessment: Supplemental Oxygen (2L ), DVT Prophylaxis General: Alert, Cooperative, No Acute Distress. No: Oriented HEENT: Pupils Equal, Pupils Reactive, Mucous Membr. Moist/[place] Neck: Supple, Trachea Midline Lungs: Clear to Auscultation, Normal Respiratory Effort Cardiovascular: Regular Rate, Regular Rhythm GI/Abdominal Exam: Normal Bowel Sounds, Soft, Non-Tender, No Distention (Female) Exam: Deferred Back Exam: Decreased Range of Motion (2/2 pain) Extremities: Non-Tender, No Pedal Edema, Normal Capillary Refill, Limited Range of Motion. No: Normal Inspection (Bilateral complete toe amputations) Skin: Warm, Dry, Intact Neurological: No New Focal Deficit Psy/Mental Status: Alert Sepsis Event Note - Evaluation Sepsis Screening Result: No Definite Risk - Focused Exam Vital Signs: Vital Signs Pulse Ox Pulse Ox 07/03/19 08:15 92 L 07/03/19 02:37 91 L 07/03/19 00:00 94 L Date Exam was Performed: 07/05/19 Time Exam was Performed: 11:26 - Problem List & Annotations (1) Hypotension SNOMED Code(s): 17536215 Code(s): I95.9 - HYPOTENSION, UNSPECIFIED Status: Acute Current Visit: Yes Qualifiers: Hypotension type: hypotension due to hypovolemia Qualified Code(s): I95.89 - Other hypotension; E86.1 - Hypovolemia (2) Emphysema of lung SNOMED Code(s): 17434025 Code(s): J43.9 - EMPHYSEMA, UNSPECIFIED Status: Chronic Priority: Low Current Visit: No Qualifiers: Emphysema type: unspecified Qualified Code(s): J43.9 - Emphysema, unspecified (3) Dementia SNOMED Code(s): 58658709 Code(s): F03.90 - UNSPECIFIED DEMENTIA WITHOUT BEHAVIORAL DISTURBANCE Status: Acute Priority: High Current Visit: Yes Qualifiers: Dementia type: Alzheimer's disease Alzheimer's disease onset: unspecified onset Dementia behavioral disturbance: without behavioral disturbance Qualified Code(s): G30.9 - Alzheimer's disease, unspecified; F02.80 - Dementia in other diseases classified elsewhere without behavioral disturbance (4) Fall SNOMED Code(s): 0600100, 295201612 Code(s): W19.XXXA - UNSPECIFIED FALL, INITIAL ENCOUNTER Status: Acute Current Visit: Yes (5) Generalized weakness SNOMED Code(s): 23230209 Code(s): R53.1 - WEAKNESS Status: Acute Priority: High Current Visit: Yes (6) Amputated toe of left foot SNOMED Code(s): 529144092 Code(s): S98.132A - COMPLETE TRAUMATIC AMPUTATION OF ONE LEFT LESSER TOE, INIT Status: Chronic Priority: Low Current Visit: No (7) Amputated toe of right foot SNOMED Code(s): 165469753 Code(s): S98.131A - COMPLETE TRAUMATIC AMPUTATION OF ONE RIGHT LESSER TOE, INIT Status: Chronic Priority: Low Current Visit: No (8) Alzheimer disease SNOMED Code(s): 07479462 Code(s): G30.9 - ALZHEIMER'S DISEASE, UNSPECIFIED; F02.80 - DEMENTIA IN OTH DISEASES CLASSD ELSWHR W/O BEHAVRL DISTURB Status: Acute Priority: High Current Visit: Yes Qualifiers: Alzheimer's disease onset: unspecified onset Dementia behavioral disturbance: without behavioral disturbance Qualified Code(s): G30.9 - Alzheimer's disease, unspecified; F02.80 - Dementia in other diseases classified elsewhere without behavioral disturbance (9) History of renal calculi SNOMED Code(s): 262508431 Code(s): Z87.442 - PERSONAL HISTORY OF URINARY CALCULI Status: Chronic Priority: Low Current Visit: No (10) History of anemia SNOMED Code(s): 735210312 Code(s): Z86.2 - PRSNL HISTORY OF DIS OF THE BLD/BLD-FORM ORG/IMMUN MECHNSM Status: Chronic Priority: Low Current Visit: No (11) Constipation SNOMED Code(s): 75011618 Code(s): K59.00 - CONSTIPATION, UNSPECIFIED Status: Acute Priority: High Current Visit: Yes Qualifiers: Constipation type: unspecified constipation type Qualified Code(s): K59.00 - Constipation, unspecified - Problem List Review Problem List Initiated/Reviewed/Updated: Yes - My Orders Last 24 Hours: My Active Orders 07/03/19 10:30 Consult to Case Management/Gag Writer [CONS] Routine Consult to Speech Language Pathology [BOIL OFF WORKER Evaluation and Treatment] [CONS] Routine - Plan Plan:: Assessment 79-year-old with fall at home without loss of consciousness * No radiographic evidence of fracture Emphysema and peripheral fibrosis on CT, with hypoxia * CT evidence of emphysema with peripheral fibrosis * Requiring 2 L nasal cannula to keep oxygen saturations above 88% * No signs of acute exacerbation of COPD or pneumonia. * No infectious signs Dementia * No medications Constipation * Last BM on 06/30/19 Plan * Admit to medical floor * FiO2 to keep SPO2 greater than 88% * Decrease DuoNeb to PRN * Laxatives as ordered * Albuterol neb every 4 hours as needed * PT and OT secondary to ataxia and fall. Patient has all 10 toes amputated. * VTE prophylaxis with SCDs * CODE STATUS: Full code * COVID-19 test pending - retirement requirement * Length of stay - pending placement Testing COVID due to retirement request. Suspect oxygen need is due to history of tobacco use with emphysematous changes and peripheral fibrosis noted on CT scan and narcotic pain medication use. No concerns for COVID at this time. No active signs of infection.
[2019-07-04] MEDS: Acetaminophen/HYDROcodone 325-5 MG Tab PO PRN ×4 (01:27→20:19)
[2019-07-04] MEDS: Albuterol/Ipratropium 3.0-0.5 MG/3 ML Neb Soln NEB SCH ×4 (02:03→20:57)
[2019-07-04] MEDS ORDERED: Bisacodyl 10 MG Supp RECTAL ONE (05:34)
--- NOTE | 2019-07-04 09:16 | PCM.PN ---
- General Info Date of Service: 07/04/19 Admission Dx/Problem (Free Text): Admission Diagnosis/Problem Admission Diagnosis/Problem Fall Subjective Update: Continues to deny complaints Denies respiratory symptoms Last BM on - rectal suppository given Functional Status: Reports: Pain Controlled, Tolerating Diet, Ambulating, Urinating. Denies: New Symptoms - Review of Systems General: Reports: No Symptoms, Weakness. Denies: Fever, Fatigue, Malaise, Chills HEENT: Reports: No Symptoms. Denies: Headaches, Sore Throat Pulmonary: Reports: No Symptoms. Denies: Shortness of Breath, Pleuritic Chest Pain, Cough, Sputum Cardiovascular: Reports: No Symptoms. Denies: Chest Pain, Palpitations, Dyspnea on Exertion Gastrointestinal: Reports: Constipation. Denies: Abdominal Pain, Diarrhea, Nausea, Vomiting Genitourinary: Reports: No Symptoms. Denies: Pain Musculoskeletal: Reports: Back Pain Skin: Reports: No Symptoms. Denies: Cyanosis Neurological: Reports: No Symptoms, Difficulty Walking, Weakness, Gait Disturbance Psychiatric: Reports: No Symptoms - Patient Data Vitals - Most Recent: Last Vital Signs Temp 97.9 F 07/04/19 04:02 Pulse 66 07/04/19 04:02 Resp 16 07/04/19 04:02 BP 100/58 L 07/04/19 04:02 Pulse Ox 94 L 07/04/19 07:59 Weight - Most Recent: 146 lb I&O - Last 24 Hours: Intake & Output 07/03/19 07/04/19 07/04/19 22:59 06:59 14:59 Intake Total 760 150 Output Total 300 300 Balance 460 -150 Lab Results Last 24 Hours: Laboratory Results - last 24 hr 07/04/19 Range/Units 05:44 Sodium 135 L (136-145) mEq/L Potassium 4.1 (3.5-5.1) mEq/L Chloride 98 (98-107) mEq/L Carbon Dioxide 30 (21-32) mEq/L Anion Gap 11.1 (5-15) BUN 11 (7-18) mg/dL Creatinine 0.5 L (0.55-1.02) mg/dL Est Cr Clr Drug Dosing 81.37 mL/min Estimated GFR (MDRD) > 60 (>60) mL/min BUN/Creatinine Ratio 22.0 H (14-18) Glucose 92 (83-115) mg/dL Calcium 8.4 L (8.5-10.1) mg/dL Phosphorus 3.6 (2.6-4.7) mg/dL Magnesium 2.1 (1.8-2.4) mg/dl Med Orders - Current: Current Medications Acetaminophen (Tylenol) 650 mg PO Q4H PRN PRN Reason: Pain (Mild 1-3)/fever Last Admin: 07/02/19 15:59 Dose: 650 mg Hydrocodone Bitart/Acetaminophen ([place] 325-5 Mg) 1.5 tab PO Q4H PRN PRN Reason: Pain Last Admin: 07/04/19 06:41 Dose: 1.5 tab Albuterol (Proventil Neb Soln) 2.5 mg NEB Q6H PRN PRN Reason: Shortness of Breath Albuterol/Ipratropium (Duoneb 3.0-0.5 Mg/3 Ml) 3 ml NEB Q6HRRT CORY Last Admin: 07/04/19 07:59 Dose: 3 ml Sodium Chloride (Saline Flush) 10 ml FLUSH ASDIRECTED PRN PRN Reason: Keep Vein Open Last Admin: 07/01/19 14:16 Dose: 10 ml Discontinued Medications Hydrocodone Bitart/Acetaminophen ([place]y 325-5 Mg) 1 tab PO Q4H PRN PRN Reason: Pain Last Admin: 07/02/19 21:35 Dose: 1 tab Bisacodyl (Dulcolax) 10 mg RECTAL ONETIME ONE Stop: 07/04/19 05:35 Last Admin: 07/04/19 05:50 Dose: 10 mg Sodium Chloride (Normal Saline) 500 mls @ 500 mls/hr IV .BOLUS ONE Stop: 07/01/19 14:52 Last Admin: 07/01/19 14:16 Dose: 500 mls/hr Sodium Chloride (Normal Saline) 100 mls @ 60 mls/hr IV ASDIRECTED CORY Last Admin: 07/01/19 16:49 Dose: 60 mls/hr Iopamidol (Isovue-370 (76%)) 100 ml IVPUSH ONETIME ONE Stop: 07/01/19 16:38 Last Admin: 07/01/19 16:48 Dose: 100 ml Magnesium Hydroxide (Milk Of Magnesia) 30 ml PO ONETIME ONE Stop: 07/03/19 08:01 Last Admin: 07/03/19 09:28 Dose: 30 ml Sodium Chloride (Saline Flush) 10 ml FLUSH ONETIME PRN PRN Reason: Keep Vein Open Last Admin: 07/01/19 16:49 Dose: 10 ml - Exam Quality Assessment: Supplemental Oxygen (Stable at 2L ), DVT Prophylaxis. No: Urine Catheter General: Alert, Oriented, Cooperative, No Acute Distress HEENT: Pupils Equal, Pupils Reactive, Mucous Membr. Moist/[place] Neck: Supple, Trachea Midline Lungs: Normal Respiratory Effort, Decreased Breath Sounds Cardiovascular: Regular Rate, Regular Rhythm GI/Abdominal Exam: Normal Bowel Sounds, Soft, Non-Tender, No Distention (Female) Exam: Deferred Extremities: Normal Range of Motion, Non-Tender, No Pedal Edema, Normal Capillary Refill, Other (All lower digits amputated bilaterally ) Skin: Warm, Dry, Intact Neurological: No New Focal Deficit Psy/Mental Status: Alert Sepsis Event Note - Evaluation Sepsis Screening Result: No Definite Risk - Focused Exam Vital Signs: Vital Signs Temp Pulse Resp BP Pulse Ox Pulse Ox 07/04/19 07:59 94 L 07/04/19 04:02 97.9 F 66 16 100/58 L 93 L 07/04/19 02:04 96 Date Exam was Performed: 07/05/19 Time Exam was Performed: 11:27 - Problem List & Annotations (1) Hypotension SNOMED Code(s): 37389641 Code(s): I95.9 - HYPOTENSION, UNSPECIFIED Status: Acute Current Visit: Yes Qualifiers: Hypotension type: hypotension due to hypovolemia Qualified Code(s): I95.89 - Other hypotension; E86.1 - Hypovolemia (2) Emphysema of lung SNOMED Code(s): 30147825 Code(s): J43.9 - EMPHYSEMA, UNSPECIFIED Status: Chronic Priority: Low Current Visit: No Qualifiers: Emphysema type: unspecified Qualified Code(s): J43.9 - Emphysema, unspecified (3) Dementia SNOMED Code(s): 51161639 Code(s): F03.90 - UNSPECIFIED DEMENTIA WITHOUT BEHAVIORAL DISTURBANCE Status: Acute Priority: High Current Visit: Yes Qualifiers: Dementia type: Alzheimer's disease Alzheimer's disease onset: unspecified onset Dementia behavioral disturbance: without behavioral disturbance Qualified Code(s): G30.9 - Alzheimer's disease, unspecified; F02.80 - Dementia in other diseases classified elsewhere without behavioral disturbance (4) Fall SNOMED Code(s): 2753636, 480083677 Code(s): W19.XXXA - UNSPECIFIED FALL, INITIAL ENCOUNTER Status: Acute Current Visit: Yes (5) Generalized weakness SNOMED Code(s): 17073088 Code(s): R53.1 - WEAKNESS Status: Acute Priority: High Current Visit: Yes (6) Amputated toe of left foot SNOMED Code(s): 864755268 Code(s): S98.132A - COMPLETE TRAUMATIC AMPUTATION OF ONE LEFT LESSER TOE, INIT Status: Chronic Priority: Low Current Visit: No (7) Amputated toe of right foot SNOMED Code(s): 914306006 Code(s): S98.131A - COMPLETE TRAUMATIC AMPUTATION OF ONE RIGHT LESSER TOE, INIT Status: Chronic Priority: Low Current Visit: No (8) Alzheimer disease SNOMED Code(s): 03034296 Code(s): G30.9 - ALZHEIMER'S DISEASE, UNSPECIFIED; F02.80 - DEMENTIA IN OTH DISEASES CLASSD ELSWHR W/O BEHAVRL DISTURB Status: Acute Priority: High Current Visit: Yes Qualifiers: Alzheimer's disease onset: unspecified onset Dementia behavioral disturbance: without behavioral disturbance Qualified Code(s): G30.9 - Alzheimer's disease, unspecified; F02.80 - Dementia in other diseases classified elsewhere without behavioral disturbance (9) History of renal calculi SNOMED Code(s): 383737351 Code(s): Z87.442 - PERSONAL HISTORY OF URINARY CALCULI Status: Chronic Priority: Low Current Visit: No (10) History of anemia SNOMED Code(s): 121610015 Code(s): Z86.2 - PRSNL HISTORY OF DIS OF THE BLD/BLD-FORM ORG/IMMUN MECHNSM Status: Chronic Priority: Low Current Visit: No - Problem List Review Problem List Initiated/Reviewed/Updated: Yes - My Orders Last 24 Hours: My Active Orders 07/03/19 10:30 Consult to Case Management/Glaze Handler [CONS] Routine Consult to Speech Language Pathology [DIGITAL MARKETING MANAGER Evaluation and Treatment] [CONS] Routine 07/03/19 12:58 CORONAVIRUS COVID-19 PCR [facility] Routine 07/04/19 13:00 CORONAVIRUS COVID-19 PCR [facility] Routine 07/04/19 Breakfast Regular Diet [DIET] - Plan Plan:: Assessment 79-year-old with fall at home without loss of consciousness * No radiographic evidence of fracture Emphysema and peripheral fibrosis on CT, with hypoxia * CT evidence of emphysema with peripheral fibrosis * Requiring 2 L nasal cannula to keep oxygen saturations above 88% * No signs of acute exacerbation of COPD or pneumonia. * No infectious signs Dementia * No medications Constipation * Last BM on 06/30/19 * No response to laxatives * No response to suppository Plan * Admit to medical floor * FiO2 to keep SPO2 greater than 88% * Decrease DuoNeb to PRN * Start Metamucil; may require enema * Albuterol neb every 4 hours as needed * PT and OT secondary to ataxia and fall. Patient has all 10 toes amputated. * VTE prophylaxis with SCDs * CODE STATUS: Full code * COVID-19 test: initial negative; Secondary test pending - [facility] requirement * Length of stay - pending placement Testing COVID due to [facility] request. Initial negative and secondary requested by SNF. Suspect oxygen need is due to history of tobacco use with emphysematous changes and peripheral fibrosis noted on CT scan and narcotic pain medication use. No concerns for COVID at this time. No active signs of infection.
[2019-07-04] MEDS ORDERED: Psyllium Husk Powder Sugar Free 3.4 GM Packet PO PRN (15:03)
[2019-07-04] MEDS: Nystatin Topical Powder 15 GM Bottle TOP PRN (15:38)
[2019-07-05] MEDS: Albuterol/Ipratropium 3.0-0.5 MG/3 ML Neb Soln NEB SCH ×2 (02:43→08:23)
[2019-07-05] MEDS: Acetaminophen/HYDROcodone 325-5 MG Tab PO PRN (03:19)
[2019-07-05 04:14] VITALS: PULSE 68
[2019-07-05 08:21] VITALS: BP 114/78
[2019-07-05] MEDS: Nystatin Topical Powder 15 GM Bottle TOP PRN (08:34)
--- NOTE | 2019-07-05 09:03 | PCM.DCSUM1 ---
Discharge Summary - Hospital Course HPI Initial Comments: 79-year-old patient with history of Alzheimer's dementia brought in by EMS after a fall at home. Patient was found on her back in the fall was not witnessed. Patient states that she fell over her own feet, but daughter states she likely fell tripped over her walker there is no obvious loss of consciousness. She denies any head trauma, shortness of breath, chest pain, or back pain. She is found to have a low pulse oximetry in the mid 80s on room air and low blood pressure. Chest CT was done because of her hypoxemia. Impression: 1. No findings of pulmonary embolism. 2. Diffuse emphysematous change with peripheral fibrosis. 3. Lymph nodes within the right hilar region most likely on an inflammatory basis. 4. Nothing acute is otherwise seen. Lumbar spine, pelvis, chest x-ray, and head CT were all done finding degenerative changes or changes consistent with age but nothing acute. Diagnosis: Stroke: No - Discharge Data Discharge Date: 07/05/19 (Admit date: 07/01/19) Discharge Disposition: DC/Tfer to SNF 03 Condition: Stable - Referral to Home Health Primary Care Physician: PCP None - Discharge Diagnosis/Problem(s) (1) Hypotension SNOMED Code(s): 89145136 ICD Code: I95.9 - HYPOTENSION, UNSPECIFIED Status: Acute Current Visit: Yes Qualifiers: Hypotension type: hypotension due to hypovolemia Qualified Code(s): I95.89 - Other hypotension; E86.1 - Hypovolemia (2) Emphysema of lung SNOMED Code(s): 16204069 ICD Code: J43.9 - EMPHYSEMA, UNSPECIFIED Status: Chronic Priority: Low Current Visit: No Qualifiers: Emphysema type: unspecified Qualified Code(s): J43.9 - Emphysema, unspecified (3) Dementia SNOMED Code(s): 69878248 ICD Code: F03.90 - UNSPECIFIED DEMENTIA WITHOUT BEHAVIORAL DISTURBANCE Status: Acute Priority: High Current Visit: Yes Qualifiers: Dementia type: Alzheimer's disease Alzheimer's disease onset: unspecified onset Dementia behavioral disturbance: without behavioral disturbance Qualified Code(s): G30.9 - Alzheimer's disease, unspecified; F02.80 - Dementia in other diseases classified elsewhere without behavioral disturbance (4) Fall SNOMED Code(s): 4899776, 713787855 ICD Code: W19.XXXA - UNSPECIFIED FALL, INITIAL ENCOUNTER Status: Acute Current Visit: Yes (5) Generalized weakness SNOMED Code(s): 73841812 ICD Code: R53.1 - WEAKNESS Status: Acute Priority: High Current Visit: Yes (6) Amputated toe of left foot SNOMED Code(s): 755571933 ICD Code: S98.132A - COMPLETE TRAUMATIC AMPUTATION OF ONE LEFT LESSER TOE, INIT Status: Chronic Priority: Low Current Visit: No (7) Amputated toe of right foot SNOMED Code(s): 990062293 ICD Code: S98.131A - COMPLETE TRAUMATIC AMPUTATION OF ONE RIGHT LESSER TOE, INIT Status: Chronic Priority: Low Current Visit: No (8) Alzheimer disease SNOMED Code(s): 43824041 ICD Code: G30.9 - ALZHEIMER'S DISEASE, UNSPECIFIED; F02.80 - DEMENTIA IN OTH DISEASES CLASSD ELSWHR W/O BEHAVRL DISTURB Status: Acute Priority: High Current Visit: Yes Qualifiers: Alzheimer's disease onset: unspecified onset Dementia behavioral disturbance: without behavioral disturbance Qualified Code(s): G30.9 - Alzheimer's disease, unspecified; F02.80 - Dementia in other diseases classified elsewhere without behavioral disturbance (9) History of renal calculi SNOMED Code(s): 218792246 ICD Code: Z87.442 - PERSONAL HISTORY OF URINARY CALCULI Status: Chronic Priority: Low Current Visit: No (10) History of anemia SNOMED Code(s): 346969467 ICD Code: Z86.2 - PRSNL HISTORY OF DIS OF THE BLD/BLD-FORM ORG/IMMUN MECHNSM Status: Chronic Priority: Low Current Visit: No - Patient Summary/Data Consults: Consultations 07/01/19 19:43 OT Evaluation and Treatment [CONS] Routine PT Evaluation and Treatment [CONS] Routine 07/03/19 10:30 Consult to Case Management/Juke Box Mechanic [CONS] Routine Consult to Speech Language Pathology [EXCELLENCE COACH Evaluation and Treatment] [CONS] Routine Labs Pending at D/C: Repeat COVID-19 test pending Recommended Follow-up Testing/Procedures: Follow-up with PCP within 5-7 days of discharge. Hospital Course: Carol was admitted to the floor after a fall at home. She does have baseline dementia and reports worsening weakness and occasional falls per the family. She was noted to be hypotensive and hypovolemic. Infectious work-up was grossly negative. She does have underlying fibrosis and has required oxygen while here. She is being discharged on 2 L with goal saturations above 88%. She may benefit from a pulmonary consult in the future. For her back pain and was started on 1.5 tabs of 325/5 as needed p.o. [place] good response. This will be continued at discharge along with as needed Tylenol for pain. Commend continuing heating pad as needed for back pain as well. Due to falls and concerns about bleeding her aspirin has been stopped. Discussed this with Dr. Cornejo, hospitalist attending, and she does not feel the patient would benefit from any anticoagulants at discharge due to this increased risk. Blood pressure has been grossly stable secondary to IV fluids. Dietary has been following the patient. She has been working with PT and OT who continue to recommend SNF placement. COVID-19 test was obtained at the request of the custodial she will be admitted to and returned negative. Second COVID-19 test was again obtained at the request of the custodial, however they will now take the patient without the results of this test. There have been no medical signs or concerns for COVID-19 from our team. He has had constipation while here which was ultimately resolved through an enema. She will be discharged on daily senna plus along with as needed Metamucil. She has had some chafing below her breasts which appear to be fungal in nature. She was started on nystatin powder while here and this will be continued at discharge as well. Recommend she continue oxygen as needed to keep saturations above 88% . Recommend continuing PT/OT at SNF. He did see our speech-language pathologist as her diet was initially restricted and is now regular. Recommend follow-up with primary care provider within 5 to 7 days of discharge. Recommend rechecking electrolytes including magnesium and phosphorus at that visit. Discharged today to [facility]. - Patient Instructions Diet: Usual Diet as Tolerated Diet, Other: See dietary note Activity: As Tolerated Driving: Do Not Drive Showering/Bathing: May Shower Notify Provider of: Fever, Increased Pain, Nausea and/or Vomiting Other/Special Instructions: Follow-up with primary care provider within 5-7 days of discharge, sooner if needed. COVID-19 test still outstanding. This is the second test and was obtained due to request from longterm facility. First test was negative. No current concerns of COVID-19 infection. Attempt to wean oxygen as tollerated. Resume home medications as directed. Take all new medications as directed. Heating pad as needed for back pain. Continue PT/OT at SNF. Should symptoms return or worsen contact primary care provider or return to the Emergency Department. - Discharge Plan *PRESCRIPTION DRUG MONITORING PROGRAM REVIEWED*: No *COPY OF PRESCRIPTION DRUG MONITORING REPORT IN PATIENT RED: No Prescriptions/Med Rec: Acetaminophen [Tylenol] 650 mg PO Q4H PRN #20 tablet PRN Reason: Pain (Mild 1-3)/fever Acetaminophen/HYDROcodone [[place] 325-5 MG] 1.5 tab PO Q4H PRN #20 tablet PRN Reason: Pain Docusate Sodium/Sennosides [Senna Plus] 1 each PO DAILY #20 tab Nystatin [Nystop] 1 gm TOP QID PRN #3 bottle PRN Reason: skin breakdown Psyllium Husk/Aspartame [Metamucil Sugar Free] 1 packet PO DAILY PRN #20 packet PRN Reason: Constipation Home Medications: Home Meds Acetaminophen [Tylenol] 650 mg PO Q4H PRN #20 tablet 07/05/19 [Rx] Acetaminophen/HYDROcodone [[place] 325-5 MG] 1.5 tab PO Q4H PRN #20 tablet [Rx] Docusate Sodium/Sennosides [Senna Plus] 1 each PO DAILY #20 tab 07/05/19 [Rx] Nystatin [Nystop] 1 gm TOP QID PRN #3 bottle 07/05/19 [Rx] Psyllium Husk/Aspartame [Metamucil Sugar Free] 1 packet PO DAILY PRN #20 packet 07/05/19 [Rx] Oxygen Therapy Mode: Nasal Cannula Oxygen Flow Rate (L/min): 2 Maintain SpO2% greater than: 88 Patient Handouts: Weakness, [id number], Chronic Obstructive Pulmonary Disease , [id number], Hypotension Referrals: Morris Watkins MD [Physician] - 07/10/19 11:00 am (Please register at 10 :30am.) - Discharge Summary/Plan Comment DC Time >30 min.: Yes (45 mins ) - General Info Date of Service: 07/05/19 Admission Dx/Problem (Free Text: Admission Diagnosis/Problem Admission Diagnosis/Problem Fall Functional Status: Reports: Pain Controlled, Tolerating Diet, Ambulating, Urinating. Denies: New Symptoms - Review of Systems General: Reports: Weakness (improving ). Denies: Fever, Fatigue, Malaise, Chills HEENT: Reports: No Symptoms. Denies: Headaches, Sore Throat Pulmonary: Reports: No Symptoms. Denies: Shortness of Breath, Cough, Sputum, Wheezing Cardiovascular: Reports: No Symptoms. Denies: Chest Pain, Palpitations Gastrointestinal: Reports: Constipation (Enema given today with good results ). Denies: Abdominal Pain, Diarrhea, Nausea, Vomiting Genitourinary: Reports: No Symptoms. Denies: Pain Musculoskeletal: Reports: No Symptoms Skin: Reports: No Symptoms. Denies: Cyanosis Neurological: Reports: Confusion (baseline dementia ), Difficulty Walking, Weakness, Gait Disturbance. Denies: Trouble Speaking Psychiatric: Reports: No Symptoms - Patient Data Vitals - Most Recent: Last Vital Signs Temp 97.9 F 07/05/19 08:16 Pulse 68 07/05/19 08:16 Resp 16 07/05/19 08:16 BP 114/78 07/05/19 08:16 Pulse Ox 94 L 07/05/19 08:23 Weight - Most Recent: 145 lb I&O - Last 24 hours: Intake & Output 07/04/19 07/05/19 07/05/19 22:59 06:59 14:59 Intake Total 1020 400 Output Total 1025 Balance 1020 -625 Lab Results - Last 24 hrs: Laboratory Results - last 24 hr 07/03/19 Range/Units 12:58 COVID-19 PCR Not detected (NOT DETECT) Med Orders - Current: Current Medications Acetaminophen (Tylenol) 650 mg PO Q4H PRN PRN Reason: Pain (Mild 1-3)/fever Last Admin: 07/02/19 15:59 Dose: 650 mg Hydrocodone Bitart/Acetaminophen ([place] 325-5 Mg) 1.5 tab PO Q4H PRN PRN Reason: Pain Last Admin: 07/05/19 03:19 Dose: 1.5 tab Albuterol (Proventil Neb Soln) 2.5 mg NEB Q6H PRN PRN Reason: Shortness of Breath Albuterol/Ipratropium (Duoneb 3.0-0.5 Mg/3 Ml) 3 ml NEB Q6HRRT [facility] Last Admin: 07/05/19 08:23 Dose: 3 ml Nystatin (Nystop) 1 gm TOP QID PRN PRN Reason: skin breakdown Last Admin: 07/05/19 08:34 Dose: 1 applic Psyllium Husk (Metamucil Sugar Free) 1 packet PO DAILY PRN PRN Reason: Constipation Last Admin: 07/04/19 17:08 Dose: 1 packet Sodium Chloride (Saline Flush) 10 ml FLUSH ASDIRECTED PRN PRN Reason: Keep Vein Open Last Admin: 07/01/19 14:16 Dose: 10 ml Discontinued Medications Hydrocodone Bitart/Acetaminophen ([place] 325-5 Mg) 1 tab PO Q4H PRN PRN Reason: Pain Last Admin: 07/02/19 21:35 Dose: 1 tab Bisacodyl (Dulcolax) 10 mg RECTAL ONETIME ONE Stop: 07/04/19 05:35 Last Admin: 07/04/19 05:50 Dose: 10 mg Sodium Chloride (Normal Saline) 500 mls @ 500 mls/hr IV .BOLUS ONE Stop: 07/01/19 14:52 Last Admin: 07/01/19 14:16 Dose: 500 mls/hr Sodium Chloride (Normal Saline) 100 mls @ 60 mls/hr IV ASDIRECTED [facility] Last Admin: 07/01/19 16:49 Dose: 60 mls/hr Iopamidol (Isovue-370 (76%)) 100 ml IVPUSH ONETIME ONE Stop: 07/01/19 16:38 Last Admin: 07/01/19 16:48 Dose: 100 ml Magnesium Hydroxide (Milk Of Magnesia) 30 ml PO ONETIME ONE Stop: 07/03/19 08:01 Last Admin: 07/03/19 09:28 Dose: 30 ml Sodium Chloride (Saline Flush) 10 ml FLUSH ONETIME PRN PRN Reason: Keep Vein Open Last Admin: 07/01/19 16:49 Dose: 10 ml - Exam Quality Assessment: Reports: Supplemental Oxygen (2L), DVT Prophylaxis General: Reports: Alert, Oriented, Cooperative, No Acute Distress HEENT: Reports: Pupils Equal, Pupils Reactive, Mucous Membr. Moist/[place] Neck: Reports: Supple, Trachea Midline Lungs: Reports: Clear to Auscultation, Normal Respiratory Effort Cardiovascular: Reports: Regular Rate, Regular Rhythm GI/Abdominal Exam: Normal Bowel Sounds, Soft, Non-Tender, No Distention, No Abnormal Bruit (Female) Exam: Deferred Rectal (Female) Exam: Deferred Back Exam: Reports: Normal Inspection Extremities: Normal Range of Motion, Non-Tender, No Pedal Edema, Normal Capillary Refill, Other (all lower digits amputated bilaterally ) Skin: Reports: Warm, Dry, Intact Neurological: Reports: No New Focal Deficit Psy/Mental Status: Reports: Alert
== END 2019-07-05 11:20 | DRG 641 ==
LOC: JD.ED 12:36 → JD.MS 16:44
PROVIDERS: ADMIT Family Medicine; ATTEND Family Medicine
DX: E86.1 Hypovolemia (principal); I95.89 Other hypotension; J84.10 Pulmonary fibrosis, unspecified; J43.9 Emphysema, unspecified; R09.02 Hypoxemia; W19.XXXA Unspecified fall, initial encounter; G30.9 Alzheimer's disease, unspecified; F02.80 Dementia in other diseases classified elsewhere, unspecified severity, without behavioral disturbance, psychotic disturbance, mood disturbance, and anxiety; K59.00 Constipation, unspecified; Z11.59 Encounter for screening for other viral diseases; Z66 Do not resuscitate; Z89.422 Acquired absence of other left toe(s); Z89.421 Acquired absence of other right toe(s); Z79.82 Long term (current) use of aspirin; Z87.891 Personal history of nicotine dependence; Z87.442 Personal history of urinary calculi; D64.9 Anemia, unspecified; Z96.649 Presence of unspecified artificial hip joint; Z96.659 Presence of unspecified artificial knee joint; Z89.429 Acquired absence of other toe(s), unspecified side; Z88.6 Allergy status to analgesic agent
CPT/HCPCS: 36415; 70450; 70450-26; 71045; 71045-26; 71275; 71275-26; 72100; 72100-26; 72170; 72170-26; 80048; 80053; 81001; 83605; 83735; 83880; 84100; 84484; 85025; 86140; 92610-GN; 93005; 94640; 94760; 94761; 96360; 97110-GP; 97116-GP; 97162-GP; 97165-GO; 97530-GO; 97530-GP; 97535-GO; 99285-25; A9270-GY; J7030; J7050; J7620-GY; Q9967; U0002